=== PATIENT | female | born 1950 | race African-American/Black ===

== ENCOUNTER 2020-09-04 17:00 | Outpatient (RCR) | payer MEDICARE, OTHER ==
[~2020-09-04 17:00] MED LIST: B&O 60MG R/S 60 MG SUPP PR ONE; BUPIVACAINE HCL 0.5% INJ 30 ML VIAL INJ ONE; IOPAMIDOL 300MG/ML 50ML INFUS..BTL IV ONE; LIDOCAINE 2%/ EPINEPHRINE 20ML MDV ONE
== END 2020-09-10 ==
LOC: PT 17:00
PROVIDERS: ATTEND Specialist
DX: M17.0 Bilateral primary osteoarthritis of knee (principal)
CPT/HCPCS: 97110 ×5; 97162; J2001; Q9967

== ENCOUNTER 2020-10-08 09:00 | Outpatient (RCR) | payer MEDICARE, OTHER | END 2020-10-11 | LOC: PT 09:00 | PROVIDERS: ATTEND Specialist | DX: M17.0 Bilateral primary osteoarthritis of knee (principal) | CPT/HCPCS: 97139 ==

== ENCOUNTER 2020-10-18 17:04 | Outpatient (RCR) | payer MEDICARE, OTHER | END 2020-11-11 | LOC: PT 17:04 | PROVIDERS: ATTEND Specialist | DX: M17.0 Bilateral primary osteoarthritis of knee (principal); R26.2 Difficulty in walking, not elsewhere classified; M62.81 Muscle weakness (generalized); M25.562 Pain in left knee; M25.561 Pain in right knee; M25.662 Stiffness of left knee, not elsewhere classified; M25.661 Stiffness of right knee, not elsewhere classified ==

== ENCOUNTER → 2025-05-29 | Outpatient (REF) | payer MEDICARE | LOC: US 08:50 | PROVIDERS: ATTEND Internal Medicine Gastroenterology | DX: R10.11 Right upper quadrant pain (principal); R14.0 Abdominal distension (gaseous); D64.9 Anemia, unspecified; K76.0 Fatty (change of) liver, not elsewhere classified; K59.00 Constipation, unspecified; I10 Essential (primary) hypertension; Z71.3 Dietary counseling and surveillance; Z68.34 Body mass index [BMI] 34.0-34.9, adult; Z86.0100 Personal history of colon polyps, unspecified; F17.200 Nicotine dependence, unspecified, uncomplicated | CPT/HCPCS: 76700 ==